=== PATIENT | female | born 1995 | race African-American/Black ===

== ENCOUNTER 2017-05-11 04:47 | Emergency (ER) | payer SELFPAY ==
[2017-05-11] MEDS ORDERED: Metoclopramide HCl 10 MG/2 ML VIAL ONE (05:29)
== END 2017-05-11 07:36 | disposition home or self-care (01) ==
LOC: ERS 04:47
DX: R51 Headache (principal)
CPT/HCPCS: 96365; J2765

== ENCOUNTER 2017-11-13 15:57 | Emergency (ER) | payer MEDICAID, SELFPAY ==
[2017-11-13 16:29] LABS: Hemoglobin 9.5 g/dL (12.0-16.0); Mean Corpuscular HGB CONC 32.1 g/dL (32.0-36.0); Mean Corpuscular Hemoglobin 23.1 pg (27.0-31.0); Mean Corpuscular Volume 71.9 fL (78.0-98.0); Mean Platelet Volume 9.5 fL (7.4-10.4); Platelet Count 226 thou/uL (130-400); Red Blood Cell (RBC) Count 4.13 mill/uL (4.20-5.40)
[2017-11-13] MEDS ORDERED: Ondansetron HCl/PF 4 MG/2 ML Vial ONE (16:32)
[2017-11-13 16:45] LABS: Anisocytosis MODERATE=16-30 cells (100X) (0-5/hpf); Band 8 % (5-11); Elliptocytes SLIGHT = 2-5 cells (100X) (0-1/hpf); Hypochromia SLIGHT = 6-15 cells (100X) (0-5/hpf); Lymphocytes 46 % (21-51); MDiff Complete? YES; Microcytosis SLIGHT = 6-15 cells (100X) (0-5/hpf); Monocytes 19 % (0-10); Neutrophil 24 % (42-75); Ovalocytes SLIGHT = 2-5 cells (100X) (0-1/hpf); PLT Morphology Comment Appears Adequate; Polychromasia SLIGHT = 2-3 cells (100X) (0-2/hpf); Reactive Lymphocytes 3 % (0-10); Schistocytes SLIGHT = 2-5 cells (100X) (0-1/hpf)
[2017-11-13 16:58] LABS: ALT (SGPT) 11 U/L (8-55); AST (SGOT) 16 U/L (5-34); Albumin 4.2 g/dL (3.5-5.0); Alkaline Phosphatase 46 U/L (40-150); Anion Gap 10 mmol/L (10-20); BUN (Urea Nitrogen) 5 mg/dL (7.0-18.7); Bilirubin, Total 0.3 mg/dL (0.2-1.2); Calc. Creatinine Clearance 0 mL/min (70-130); Calcium 9.3 mg/dL (7.8-10.44); Carbon Dioxide 25 mmol/L (22-29); Chloride 104 mmol/L (98-107); Estimated GFR-MDRD Greater than 90; Globulin 3.6 g/dL (2.4-3.5); Glucose 82 mg/dL (70-105); Potassium 3.7 mmol/L (3.5-5.1); Protein, Total 7.8 g/dL (6.0-8.3); Sodium 135 mmol/L (136-145)
--- NOTE | 2017-11-13 17:36 | ULT ---
PELVIC ULTRASOUND 11/13/17 HISTORY: 22-year-old female with abdominal pain, nausea, and vomiting. TECHNIQUE: Multiplanar haley scale sonographic imaging of the pelvis is obtained with transabdominal and endovagi nal imaging. Ovaries are assessed with color flow and spectral analysis. FINDINGS: Images demonstrate an intrauterine gestational sac which demonstrates a pole and a yolk sac. Th ere is a 1.1 x 0.9 cm angulated hypoechoic collection adjacent to the gestational sac suggesting a sm all subchorionic hemorrhage. In addition, there is fluid within the endometrial canal within the low er uterine segment, best seen on midline sagittal imaging (image 49 of 53). heart tones indicat e bradycardia documented at 78 bpm. BIOMETRY: CRL 4 mm 6 weeks, 0 days. Estimated date of delivery is 07/09/18. Right ovary measures 1.5 x 2.3 x 1.5 cm and left ovary measures 1.7 x 2.8 x 1.8 cm. There is blood fl ow documented within both ovaries. No ovarian or adnexal mass. No free fluid seen. IMPRESSION: Intrauterine gestation noted. There is bradycardia and evidence of a subchorionic hemorrhage wi th fluid within the endometrial canal, which may indicate hemorrhage as well. Close followup imaging in 48 hours advised given these ominous findings. Followup quantitative beta HCG advised. POS: [facility]
== END 2017-11-13 18:53 | disposition home or self-care (01) ==
LOC: ERS 15:57
DX: O21.9 Vomiting of pregnancy, unspecified (principal); Z3A.01 Less than 8 weeks gestation of pregnancy
CPT/HCPCS: 76856; 80053; 84702; 85025; 96361; 96374; J2405

== ENCOUNTER 2023-01-08 21:59 | Emergency (ER) | payer OTHER, SELFPAY ==
[~2023-01-08 21:59] MED LIST: Iopamidol-370 76% 500 ML MDV (1 ML CHARGE) ONE
[2023-01-08] MEDS ORDERED: Ketorolac Tromethamine 30 MG/ML VIAL ONE (22:27)
[2023-01-08 22:31] LABS: #Monocytes 0.4 thou/uL (0.11-0.59); #Neutrophils 2.8 thou/uL (1.40-6.50); %Basophils 0.2 % (0.0-1.0); %Eosinophils 0.5 % (0.0-10.0); %Monocytes 9.9 % (0.0-10.0); %Neutrophils 67.2 % (42.0-75.0); Hematocrit 27.3 % (36.0-47.0); Hemoglobin 8.1 g/dL (12.0-16.0); Mean Corpuscular HGB CONC 29.7 g/dL (32.0-36.0); Mean Corpuscular Hemoglobin 21.2 pg (27.0-31.0); Mean Corpuscular Volume 71.5 fl (78.0-98.0); Mean Platelet Volume 10.7 fL (7.4-10.4); Platelet Count 271 10x3/uL (130-400); Red Blood Cell (RBC) Count 3.82 mill/uL (4.20-5.40); White Blood Cell (WBC) Count 4.1 10x3/uL (4.8-10.8)
[2023-01-08 22:44] LABS: BHCG - Serum Negative (NEGATIVE); Pregs Control Background? CLEAR/WHITE (CLR/WHITE); Pregs Control Bar Appear? YES (CONTROL BAR)
[2023-01-08 22:48] LABS: ALT (SGPT) 7 U/L (8-55); AST (SGOT) 15 U/L (5-34); Albumin 4.1 g/dL (3.5-5.0); Alkaline Phosphatase 64 U/L (40-110); Anion Gap 14 mmol/L (10-20); BUN (Urea Nitrogen) 13 mg/dL (7.0-18.7); Bilirubin, Total 0.3 mg/dL (0.2-1.2); CK (CPK) 51 U/L (29-168); Calc. Creatinine Clearance 0 mL/min (70-130); Carbon Dioxide 20 mmol/L (22-29); Chloride 105 mmol/L (98-107); Estimated GFR 104; Globulin 4.1 g/dL (2.4-3.5); Glucose 104 mg/dL (70-105); Magnesium 1.9 mg/dL (1.6-2.6); Potassium 3.6 mmol/L (3.5-5.1); Protein, Total 8.2 g/dL (6.0-8.3); Sodium 135 mmol/L (136-145)
[2023-01-08 22:51] LABS: Troponin I Less than 0.010 ng/mL (< 0.028)
[2023-01-08 23:42] LABS: Bacteria/HPF None Seen HPF (None Seen); Bilirubin Negative (Negative); Blood, Urine Negative (Negative); CAUTI Indications for Culture Dysuria,urgency,freq; Clarity Clear (Clear); Glucose, Urine (Dipstick) Normal (Negative); Ketone, Urine Trace mg/dL (Negative); Leukocyte 75 Leu/uL (Negative); Nitrite Negative (Negative); Protein, Urine (Dipstick) 30 mg/dL (Neg-Trace); RBC/HPF 0-3 HPF (0-3); Specific Gravity, Urine 1.029 (1.002-1.036); Squamous Epithelial 0-3 HPF (0-3); Urobilinogen 3 mg/dL (Less than 2); WBC/HPF 0-3 HPF (0-3); pH, Urine 7.5 (5.0-9.0)
[2023-01-08 23:45] LABS: Urine Culture Reflex No No
[2023-01-09 00:17] LABS: Anisocytosis SLIGHT = 6-15 cells HPF (0-5); CellaVision Operator ID LAB.JMM; Elliptocytes SLIGHT = 2-5 cells HPF (0-1); Hypochromia SLIGHT = 6-15 cells HPF (0-5); Macrocytosis SLIGHT = 6-15 cells HPF (0-5); Platelet Adequacy Comment Platelets Normal; Polychromasia SLIGHT = 2-3 cells HPF (0-2)
[2023-01-09 01:03] LABS: SARS-CoV-2 NAA Rapid Test Not Detected (NotDetected)
== END 2023-01-09 00:24 | disposition home or self-care (01) ==
LOC: ERS 21:59
DX: R52 Pain, unspecified (principal); Z20.822 Contact with and (suspected) exposure to COVID-19
CPT/HCPCS: 71045; 71275; 80053; 81001; 82550; 83735; 84484; 84703; 85025; 85379; 93005; 96374; J1885

== ENCOUNTER 2023-01-21 08:52 | Inpatient (IN) | payer SELFPAY ==
[2023-01-21 09:37] LABS: Hematocrit 32.3 % (36.0-47.0); Hemoglobin 9.8 g/dL (12.0-16.0); Mean Corpuscular HGB CONC 30.3 g/dL (32.0-36.0); Mean Corpuscular Hemoglobin 23.3 pg (27.0-31.0); Mean Corpuscular Volume 76.9 fl (78.0-98.0); Mean Platelet Volume 10.4 fL (7.4-10.4); Platelet Count 310 10x3/uL (130-400); RBC Distribution Width 19.3 % (11.5-14.5); White Blood Cell (WBC) Count 3.6 10x3/uL (4.8-10.8)
[2023-01-21 09:45] LABS: BHCG - Serum Negative (NEGATIVE); Delete Auto Diff?? YES; Manual Diff?? YES; Pregs Control Background? CLEAR/WHITE (CLR/WHITE); Pregs Control Bar Appear? YES (CONTROL BAR)
[2023-01-21 09:59] LABS: ALT (SGPT) 10 U/L (8-55); AST (SGOT) 23 U/L (5-34); Albumin 3.9 g/dL (3.5-5.0); Alkaline Phosphatase 41 U/L (40-110); Anion Gap 13 mmol/L (10-20); BUN (Urea Nitrogen) 9 mg/dL (7.0-18.7); Bilirubin, Total 0.3 mg/dL (0.2-1.2); Calc. Creatinine Clearance 0 mL/min (70-130); Calcium 9.2 mg/dL (7.8-10.44); Carbon Dioxide 27 mmol/L (22-29); Chloride 102 mmol/L (98-107); Estimated GFR 123; Globulin 4.8 g/dL (2.4-3.5); Glucose 98 mg/dL (70-105); Magnesium 2.2 mg/dL (1.6-2.6); Potassium 3.2 mmol/L (3.5-5.1); Protein, Total 8.7 g/dL (6.0-8.3); Sodium 139 mmol/L (136-145)
[2023-01-21 10:23] LABS: Band 37 % (5-11); CellaVision Operator ID LAB.GE; Eosinophils 5 % (0-10); Hypochromia SLIGHT = 6-15 cells HPF (0-5); Large Platelets 13.7 % (0-5); Lymphocytes 11 % (21-51); Microcytosis SLIGHT = 6-15 cells HPF (0-5); Monocytes 9 % (0-10); Neutrophil 36 % (42-75); Platelet Adequacy Comment Platelets Normal; Polychromasia SLIGHT = 2-3 cells HPF (0-2); Total Cell Count 102
[2023-01-21] MEDS ORDERED: Ketorolac Tromethamine 30 MG/ML VIAL ONE (12:53)
[2023-01-21 13:03] VITALS: BMI 24.2
[2023-01-21] MEDS ORDERED: Ondansetron PF 4 MG/2 ML Vial IVP PRN (13:35)
[2023-01-21] MEDS ORDERED: Acetaminophen 325 MG TAB PO PRN (13:35)
[2023-01-21] MEDS ORDERED: Electrolyte Replacement Protocol 1 EACH FS SCH (13:45)
[2023-01-21] MEDS ORDERED: Magnevist 469MG/ML 20 ML VIAL ONE ×2 (13:47)
[2023-01-21] MEDS ORDERED: Potassium Chloride 20 MEQ TAB PO SCH (14:00)
[2023-01-21] MEDS ORDERED: traMADol HCl 50 MG TAB PO PRN (14:39)
[2023-01-21] MEDS ORDERED: Morphine 2 MG/ML VIAL SLOW IVP PRN (14:40)
[2023-01-21] MEDS ORDERED: Ondansetron PF 4 MG/2 ML Vial ONE (16:00)
[2023-01-21] MEDS ORDERED: Potassium Chloride 20 MEQ TAB ONE (16:00)
[2023-01-21] MEDS ORDERED: Morphine 2 MG/ML VIAL ONE (16:00)
[2023-01-21] MEDS: NS 0.9% w/ 40 MEQ KCL 1,000 ML IV SCH (16:27)
[2023-01-21] MEDS ORDERED: valACYclovir 500 MG TAB PO SCH (16:58)
[2023-01-21 17:15] LABS: INR-International Normal Ratio 1.1; Prothrombin Time 14.6 sec (12.0-14.7)
[2023-01-21 17:16] LABS: PTT 30.9 sec (22.9-36.1)
[2023-01-21 17:25] LABS: D-Dimer Test 6.68 *mcg/mL (0.27-0.43)
[2023-01-21] MEDS ORDERED: predniSONE 20 MG TAB PO SCH (17:45)
[2023-01-21] MEDS: SYSTANE GEL OPHTH DROPS 10 ML L EYE SCH (20:46)
[2023-01-21] MEDS: Artificial Tear Sol 15 ML BOT L EYE SCH (21:50)
[2023-01-21 22:11] LABS: Bacteria/HPF None Seen HPF (None Seen); Bilirubin Negative (Negative); Blood, Urine 1+ (Negative); Clarity Turbid (Clear); Glucose, Urine (Dipstick) Normal (Negative); Ketone, Urine Trace mg/dL (Negative); Leukocyte Negative Leu/uL (Negative); Nitrite Negative (Negative); Protein, Urine (Dipstick) 100 mg/dL (Neg-Trace); RBC/HPF 0-3 HPF (0-3); WBC/HPF 0-3 HPF (0-3); pH, Urine 6.5 (5.0-9.0)
[2023-01-21 22:13] LABS: Specific Gravity, Urine Greater than 1.060 (1.002-1.036)
[2023-01-22 04:12] LABS: Hemoglobin 9.1 g/dL (12.0-16.0); Mean Corpuscular HGB CONC 29.4 g/dL (32.0-36.0); Mean Corpuscular Hemoglobin 23.1 pg (27.0-31.0); Mean Corpuscular Volume 78.7 fl (78.0-98.0); Platelet Count 300 10x3/uL (130-400); RBC Distribution Width 19.5 % (11.5-14.5); Red Blood Cell (RBC) Count 3.94 mill/uL (4.20-5.40); White Blood Cell (WBC) Count 3.3 10x3/uL (4.8-10.8)
[2023-01-22 04:33] LABS: Anion Gap 12 mmol/L (10-20); BUN (Urea Nitrogen) 10 mg/dL (7.0-18.7); Calc. Creatinine Clearance 137 mL/min (70-130); Calcium 8.8 mg/dL (7.8-10.44); Carbon Dioxide 26 mmol/L (22-29); Chloride 104 mmol/L (98-107); Estimated GFR 124; Glucose 138 mg/dL (70-105); Potassium 4.8 mmol/L (3.5-5.1); Sodium 137 mmol/L (136-145)
[2023-01-22 05:18] LABS: Delete Auto Diff?? YES; Manual Diff?? YES
[2023-01-22] MEDS: NS 0.9% w/ 40 MEQ KCL 1,000 ML IV SCH ×2 (05:19→18:14)
[2023-01-22 06:19] LABS: Anisocytosis SLIGHT = 6-15 cells HPF (0-5); Band 28 % (5-11); CellaVision Operator ID LAB.JMM; Elliptocytes SLIGHT = 2-5 cells HPF (0-1); Large Platelets 10.9 % (0-5); Lymphocytes 8 % (21-51); Macrocytosis SLIGHT = 6-15 cells HPF (0-5); Monocytes 6 % (0-10); Neutrophil 58 % (42-75); Platelet Adequacy Comment Platelets Normal; Polychromasia SLIGHT = 2-3 cells HPF (0-2); Total Cell Count 101
[2023-01-22] MEDS: Artificial Tear Sol 15 ML BOT L EYE SCH ×4 (10:14→22:41)
[2023-01-22] MEDS: predniSONE 20 MG TAB PO SCH ×2 (10:56→22:43)
[2023-01-22] MEDS: valACYclovir 500 MG TAB PO SCH ×2 (10:57→22:42)
[2023-01-22 12:53] LABS: ANA Symphony (Qualitative) POSITIVE (Negative)
[2023-01-22 13:07] LABS: HIV (1/2) Antibody/Antigen Non-Reactive (NonReactive); HIV 1/2 INDEX 0.32 S/CO (<1.00)
[2023-01-22 13:50] LABS: Cardiolipin IgA Ab 7.9 APL-U/mL (<14 Negative); EliA APS New Method **** NEW METHOD ****
[2023-01-22] MEDS: SYSTANE GEL OPHTH DROPS 10 ML L EYE SCH (22:41)
[2023-01-23] MEDS: NS 0.9% w/ 40 MEQ KCL 1,000 ML IV SCH (05:58)
[2023-01-23] MEDS: Artificial Tear Sol 15 ML BOT L EYE SCH (10:17)
[2023-01-23] MEDS: predniSONE 20 MG TAB PO SCH (10:19)
[2023-01-23] MEDS: valACYclovir 500 MG TAB PO SCH (10:20)
[2023-01-23 11:49] VITALS: BP 176/81; TEMP 98.5
[2023-01-23] MEDS ORDERED: Hydroxychloroquine Sulfate 200 MG TAB PO SCH ×2 (12:15→21:00)
[2023-01-23 12:25] LABS: Complement-C4 16.5 mg/dL (15-57)
[2023-01-23 12:58] LABS: Creatinine, Urine 79.43 mg/dL (47-110)
[2023-01-25 09:37] LABS: HSV 1 - DNA Negative (Negative); HSV 2 - DNA Negative (Negative)
[2023-01-26 13:00] LABS: EliA APS New Method **** NEW METHOD ****; beta-2-Glycoprotein I IgA Ab 5.1 U/mL (<7 Negative); beta-2-Glycoprotein I IgM Abs 5.2 U/mL (<7 Negative)
[2023-01-27] MEDS ORDERED: predniSONE 5 MG TAB PO SCH (09:00)
== END 2023-01-23 14:40 | disposition home or self-care (01) | DRG 74 ==
LOC: ERS 08:52 → ERHOLD 12:15 → 2SE 19:39
PROVIDERS: ADMIT Family Medicine; ATTEND Hospitalist
DX: G51.0 Bell's palsy (principal); D64.9 Anemia, unspecified; M79.10 Myalgia, unspecified site; E87.6 Hypokalemia; R59.0 Localized enlarged lymph nodes; D70.9 Neutropenia, unspecified; Z79.899 Other long term (current) drug therapy; Z88.8 Allergy status to other drugs, medicaments and biological substances; Z98.890 Other specified postprocedural states
CPT/HCPCS: 36415; 70450; 70496; 70498; 70553; 72158; 80048; 80053; 81001; 81003; 82550; 82570; 83090; 83516; 83605; 83735; 84100; 84156; 84443; 84703; 85025; 85300; 85303; 85305; 85307; 85379; 85598; 85610; 85730; 86038; 86140; 86146; 86147; 86160; 86225; 86376; 87389; 87529; 87798; 93005; 96374; A9579; J1885; J2272; J2405; J3480; J7512

== ENCOUNTER 2024-12-20 07:36 | Emergency (ER) | payer OTHER ==
[2024-12-20] MEDS ORDERED: Ondansetron PF 4 MG/2 ML Vial ONE (08:07)
[2024-12-20 08:49] LABS: BHCG - Serum Negative (NEGATIVE); Pregs Control Background? CLEAR/WHITE (CLR/WHITE); Pregs Control Bar Appear? YES (CONTROL BAR)
[2024-12-20 08:58] LABS: ALT (SGPT) 17 U/L (Less than 34); AST (SGOT) 47 U/L (11-34); Albumin 3.5 g/dL (3.1-4.5); Alkaline Phosphatase 49 U/L (40-110); Anion Gap 15 mmol/L (10-20); BUN (Urea Nitrogen) 7 mg/dL (7.0-18.7); Bilirubin, Total 0.2 mg/dL (0.3-1.2); Calc. Creatinine Clearance 0 mL/min (70-130); Calcium 8.6 mg/dL (7.8-10.44); Carbon Dioxide 21 mmol/L (22-29); Chloride 113 mmol/L (98-107); Globulin 4.9 g/dL (2.4-3.5); Glucose 86 mg/dL (70-105); Magnesium 2.2 mg/dL (1.6-2.6); Potassium 4.2 mmol/L (3.5-5.1); Sodium 145 mmol/L (136-145)
[2024-12-20 09:08] LABS: #Basophils Less than 0.03 10x3/uL (0.0-0.2); #Eosinophils Less than 0.03 10x3/uL (0.0-0.7); #Monocytes 0.15 10x3/uL (0.11-0.59); #Neutrophils 1.29 10x3/uL (1.40-6.50); %Basophils 0.0 % (0.0-1.0); %Eosinophils 0.0 % (0.0-10.0); %Lymphocytes 37.0 % (21.0-51.0); %Monocytes 6.5 % (0.0-10.0); %Neutrophils 56.1 % (42.0-75.0); Hematocrit 27.4 % (36.0-47.0); Hemoglobin 7.9 g/dL (12.0-16.0); Mean Corpuscular Hemoglobin 22.8 pg (27.0-31.0); Mean Corpuscular Volume 79.2 fL (78.0-98.0); Platelet Count 247 10x3/uL (130-400); Red Blood Cell (RBC) Count 3.46 mill/uL (4.20-5.40); White Blood Cell (WBC) Count 2.30 10x3/uL (4.8-10.8)
[2024-12-20 10:09] LABS: Anisocytosis SLIGHT = 6-15 cells HPF (0-5); Burr Cells SLIGHT = 2-5 cells HPF (0-1); Macrocytosis SLIGHT = 6-15 cells HPF (0-5); Ovalocytes SLIGHT = 2-5 cells HPF (0-1); Platelet Adequacy Comment Platelets Normal; Poikilocytosis SLIGHT = 6-15 cells HPF (0-5); Polychromasia SLIGHT = 2-3 cells HPF (0-2); Schistocytes SLIGHT = 2-5 cells HPF (0-1); Smudge Cells 7.8 %
== END 2024-12-20 10:35 | disposition home or self-care (01) ==
LOC: ERS 07:36
DX: M32.9 Systemic lupus erythematosus, unspecified (principal); D64.9 Anemia, unspecified
CPT/HCPCS: 71045; 80053; 83735; 84703; 85025; 86850; 86900; 86901; 87428; 96374; 96375; J2270; J2405; J2919

== ENCOUNTER 2025-01-01 14:10 | Emergency (ER) | payer OTHER | END 2025-01-01 16:17 | disposition home or self-care (01) | LOC: ERS 14:10 | DX: R11.0 Nausea (principal); Z55.6 Problems related to health literacy | CPT/HCPCS: 71045; Q0162 ==

== ENCOUNTER 2025-01-31 13:54 | Inpatient (IN) | payer OTHER ==
[2025-01-31 15:55] LABS: #Basophils Less than 0.03 10x3/uL (0.0-0.2); #Eosinophils 0.06 10x3/uL (0.0-0.7); #Monocytes 0.30 10x3/uL (0.11-0.59); #Neutrophils 3.13 10x3/uL (1.40-6.50); %Basophils 0.2 % (0.0-1.0); %Eosinophils 1.4 % (0.0-10.0); %Lymphocytes 14.1 % (21.0-51.0); %Monocytes 7.2 % (0.0-10.0); %Neutrophils 75.2 % (42.0-75.0); Hematocrit 29.0 % (36.0-47.0); Hemoglobin 8.7 g/dL (12.0-16.0); Mean Corpuscular Hemoglobin 24.7 pg (27.0-31.0); Mean Corpuscular Volume 82.4 fL (78.0-98.0); Platelet Count 115 10x3/uL (130-400); Red Blood Cell (RBC) Count 3.52 mill/uL (4.20-5.40); White Blood Cell (WBC) Count 4.17 10x3/uL (4.8-10.8)
[2025-01-31 16:08] LABS: BHCG - Serum Negative (NEGATIVE)
[2025-01-31 16:09] LABS: Pregs Control Background? CLEAR/WHITE (CLR/WHITE); Pregs Control Bar Appear? YES (CONTROL BAR)
[2025-01-31 16:11] LABS: ALT (SGPT) 55 U/L (Less than 34); AST (SGOT) 121 U/L (11-34); Albumin 2.1 g/dL (3.1-4.5); Alkaline Phosphatase 41 U/L (40-110); Anion Gap 11 mmol/L (10-20); BUN (Urea Nitrogen) 10 mg/dL (7.0-18.7); Bilirubin, Total 0.4 mg/dL (0.3-1.2); Calc. Creatinine Clearance 0 mL/min (70-130); Calcium 8.0 mg/dL (7.8-10.44); Carbon Dioxide 23 mmol/L (22-29); Chloride 103 mmol/L (98-107); Globulin 4.7 g/dL (2.4-3.5); Glucose 87 mg/dL (70-105); Potassium 3.2 mmol/L (3.5-5.1); Sodium 134 mmol/L (136-145)
[2025-01-31 16:21] LABS: Anisocytosis MODERATE=16-30 cells HPF (0-5); Macrocytosis SLIGHT = 6-15 cells HPF (0-5); Microcytosis SLIGHT = 6-15 cells HPF (0-5); Platelet Adequacy Comment Platelets Decreased; Polychromasia SLIGHT = 2-3 cells HPF (0-2); Schistocytes SLIGHT = 2-5 cells HPF (0-1)
[2025-01-31 18:16] LABS: Bacteria/HPF None Seen HPF (None Seen); Glucose, Urine (Dipstick) 70 mg/dL (Negative); Leukocyte Negative Leu/uL (Negative); Protein, Urine (Dipstick) 20 mg/dL (Neg-Trace); RBC/HPF Greater than 50 HPF (0-3); Specific Gravity, Urine 1.021 (1.002-1.036)
[2025-01-31] MEDS ORDERED: LevoFLOXacin 750 mg/D5W 150 ml Premix Bag ONE (18:24)
[2025-01-31] MEDS ORDERED: Cefepime 2 GM VIAL ONE (18:26)
[2025-01-31] MEDS ORDERED: Ondansetron PF 4 MG/2 ML Vial IVP PRN (18:48)
[2025-01-31] MEDS ORDERED: Acetaminophen 325 MG TAB PO PRN (18:48)
[2025-01-31] MEDS ORDERED: Calcium Carbonate 500 MG ChewTAB PO PRN (18:48)
[2025-01-31] MEDS ORDERED: Melatonin 3 MG TAB PO PRN (18:48)
[2025-01-31] MEDS ORDERED: Senokot S 8.6-50 MG TAB PO PRN (18:48)
[2025-01-31] MEDS ORDERED: Guaifenesin DM 100-10/5 ML UDCUP PO PRN (18:48)
[2025-01-31 20:35] VITALS: BMI 23.1
[2025-01-31] MEDS: Vancomycin 1.5 GM / NS 500ML VIAL-2-BAG IVPB SCH (20:43)
[2025-01-31] MEDS ORDERED: Aluminum & Magnesium Hydroxide 60 ML, Lidocaine 2% Viscous Solution 30 ML, diphenhydrAM... SSW PRN (21:05)
[2025-01-31] MEDS: Pantoprazole 40 MG VIAL IVP SCH (21:29)
[2025-01-31] MEDS: HYDROcodone/Acetaminophen 5/325 mg Tablet PO PRN (21:30)
[2025-01-31] MEDS: Benzonatate 100 MG CAP PO SCH (21:30)
[2025-01-31 22:34] LABS: Legionella Urinary Ag Negative (Negative); Strep pneumo Urine Ag POSITIVE (NEGATIVE)
[2025-01-31] MEDS: Vancomycin 1 GM in Premix 1 BAG IVPB SCH (23:10)
[2025-01-31 23:13] LABS: HIV (1/2) Antibody/Antigen NONREACTIVE (NonReactive); HIV 1/2 INDEX 0.11 S/CO (<1.00); Hep A IgM AB NONREACTIVE (NonReactive); Hep A IgM S/CO 0.38 S/CO (0-0.79); Hep B Core IgM Index 0.10 S/CO (0-0.79); Hep B Surf Ag NONREACTIVE S/CO (NonReactive); Hep C IgG Ab NONREACTIVE S/CO (NonReactive); Hep C Index 0.31 S/CO (0-0.79)
[2025-01-31 23:49] LABS: Influenza A by NAA Not Detected (NotDetected); Influenza B by NAA Not Detected (NotDetected); RSV by NAA Not Detected (NotDetected); SARS-CoV-2 NAA Rapid Test Not Detected (NotDetected)
[2025-02-01 07:22] LABS: Vancomycin, Random 14.7 ug/mL (See Comment)
[2025-02-01 07:28] LABS: ALT (SGPT) 52 U/L (Less than 34); AST (SGOT) 100 U/L (11-34); Albumin 2.0 g/dL (3.1-4.5); Alkaline Phosphatase 36 U/L (40-110); Anion Gap 9 mmol/L (10-20); BUN (Urea Nitrogen) 9 mg/dL (7.0-18.7); Bilirubin, Total 0.4 mg/dL (0.3-1.2); Calc. Creatinine Clearance 179 mL/min (70-130); Calcium 7.4 mg/dL (7.8-10.44); Carbon Dioxide 22 mmol/L (22-29); Chloride 105 mmol/L (98-107); Globulin 4.6 g/dL (2.4-3.5); Glucose 142 mg/dL (70-105); Magnesium 1.3 mg/dL (1.6-2.6); Potassium 4.1 mmol/L (3.5-5.1); Sodium 132 mmol/L (136-145)
[2025-02-01 07:32] LABS: #Basophils Less than 0.03 10x3/uL (0.0-0.2); #Eosinophils Less than 0.03 10x3/uL (0.0-0.7); #Monocytes 0.13 10x3/uL (0.11-0.59); #Neutrophils 3.21 10x3/uL (1.40-6.50); %Basophils 0.0 % (0.0-1.0); %Eosinophils 0.0 % (0.0-10.0); %Lymphocytes 9.6 % (21.0-51.0); %Monocytes 3.5 % (0.0-10.0); %Neutrophils 85.3 % (42.0-75.0); Hematocrit 26.1 % (36.0-47.0); Hemoglobin 8.2 g/dL (12.0-16.0); Mean Corpuscular Hemoglobin 25.4 pg (27.0-31.0); Mean Corpuscular Volume 80.8 fL (78.0-98.0); Platelet Count 125 10x3/uL (130-400); Red Blood Cell (RBC) Count 3.23 mill/uL (4.20-5.40); White Blood Cell (WBC) Count 3.76 10x3/uL (4.8-10.8)
[2025-02-01] MEDS: Folic Acid/Vit B Comp W-C PO SCH (08:39)
[2025-02-01] MEDS: predniSONE 20 MG TAB PO SCH (08:40)
[2025-02-01] MEDS: Multivit, Therapeutic 1 TAB PO SCH (08:40)
[2025-02-01] MEDS: Cyanocobalamin (Vitamin B-12) 1,000 MCG TAB PO SCH (08:40)
[2025-02-01] MEDS: Pantoprazole 40 MG DR.TAB PO SCH (08:41)
[2025-02-01] MEDS: Ergocalciferol 1.25 MG(50,000 UNITS) CAP PO SCH (08:45)
[2025-02-01] MEDS: Magnesium 2 GM/50 ML(in water) 2 GM in Premix 1 BAG IVPB SCH ×2 (08:46→11:56)
[2025-02-01] MEDS ORDERED: predniSONE 20 MG TAB PO SCH (09:00)
[2025-02-01] MEDS: Magnesium Sulfate/D5W 1 GM in Premix 1 BAG IVPB SCH (10:14)
[2025-02-01 15:06] VITALS: BMI 23.1
[2025-02-01] MEDS: MAGIC MOUTHWASH 10 ML UDCUP SSW PRN (16:13)
[2025-02-01] MEDS: FLU (Fluarix Triv) 25-26 (6MOS UP)/PF 45 MCG/0.5 ML Syringe IM ONE (20:15)
[2025-02-02 13:00] LABS: dsDNA IgG Antibody 248.0 IU/mL (<10 Negative)
[2025-02-05 04:10] VITALS: TEMP 98.1
[2025-02-05 04:54] LABS: #Basophils Less than 0.03 10x3/uL (0.0-0.2); #Eosinophils Less than 0.03 10x3/uL (0.0-0.7); #Monocytes 0.52 10x3/uL (0.11-0.59); #Neutrophils 4.22 10x3/uL (1.40-6.50); %Basophils 0.0 % (0.0-1.0); %Eosinophils 0.0 % (0.0-10.0); %Lymphocytes 13.6 % (21.0-51.0); %Monocytes 9.4 % (0.0-10.0); %Neutrophils 76.3 % (42.0-75.0); Hematocrit 24.2 % (36.0-47.0); Hemoglobin 7.6 g/dL (12.0-16.0); Mean Corpuscular Hemoglobin 25.4 pg (27.0-31.0); Mean Corpuscular Volume 80.9 fL (78.0-98.0); Platelet Count 218 10x3/uL (130-400); Red Blood Cell (RBC) Count 2.99 mill/uL (4.20-5.40); White Blood Cell (WBC) Count 5.53 10x3/uL (4.8-10.8)
[2025-02-05 05:22] LABS: Anion Gap 10 mmol/L (10-20); BUN (Urea Nitrogen) 12 mg/dL (7.0-18.7); Calc. Creatinine Clearance 191 mL/min (70-130); Calcium 7.9 mg/dL (7.8-10.44); Carbon Dioxide 24 mmol/L (22-29); Chloride 106 mmol/L (98-107); Glucose 116 mg/dL (70-105); Potassium 3.6 mmol/L (3.5-5.1); Sodium 136 mmol/L (136-145)
[2025-02-05 05:23] LABS: CRP, High Sensitivity at Bryan 1.26 mg/dL (< or = 0.5)
[2025-02-05 08:06] VITALS: BP 123/71
[2025-02-05] MEDS: Amoxicillin/Potassium Clav 875 MG TAB PO SCH (08:44)
[2025-02-05 21:37] LABS: Mycoplasma pneumoniae IgG AB Less than 100 U/mL (0-99); Mycoplasma pneumoniae IgM AB 1028 U/mL (0-769)
== END 2025-02-05 10:41 | disposition home or self-care (01) | DRG 871 ==
LOC: ERS 13:54 → OBS 20:26
PROVIDERS: ADMIT Student in an Organized Health Care Education/Training Program; ATTEND Hospitalist
DX: A41.9 Sepsis, unspecified organism (principal); J13 Pneumonia due to Streptococcus pneumoniae; D61.818 Other pancytopenia; E87.1 Hypo-osmolality and hyponatremia; E87.6 Hypokalemia; D64.9 Anemia, unspecified; D69.6 Thrombocytopenia, unspecified; R74.01 Elevation of levels of liver transaminase levels; E88.09 Other disorders of plasma-protein metabolism, not elsewhere classified; J98.2 Interstitial emphysema; R53.81 Other malaise; M32.9 Systemic lupus erythematosus, unspecified; Z98.890 Other specified postprocedural states; Z88.8 Allergy status to other drugs, medicaments and biological substances; Z79.899 Other long term (current) drug therapy
CPT/HCPCS: 36415; 71045; 71275; 76705; 80048; 80053; 80074; 80202; 81001; 82306; 83605; 83735; 83880; 84145; 84443; 84484; 84703; 85025; 86141; 86160; 86225; 86850; 86870; 86880; 86900; 86901; 87040; 87070; 87081; 87205; 87389; 87449; 87637; 87899; 93005; 93306; 96361; 96365; 96368; 96375; 96376; J0692; J1956; J2270; J2272; J2470; J2543; J2919; J3373; J3475; J7030; J7042; J7512; Q9967